=== PATIENT | female | born 1945 | race Caucasian/White ===

== ENCOUNTER → 2017-11-29 | Outpatient (CLI) | payer MEDICARE ==
[~2017-11-29] MED LIST: ACET-1862 PO; ADV250/50 INH; ASP81 PO; CALC-797 PO; CELE-1 PO; COM14R IH; COM14R INH; CYA100 PO; DIA10 PO; EST625 PO; FLUT1DIS27 IH; IPRA14.76 IH; TUM500 PO; TYLENOL #3 PO; VITE400 PO; [UNRECOGNIZED DRUG - CODE] PO
[2017-11-29 12:27] LABS: LDL CHOLESTEROL 69 mg/dl
== END ==
LOC: LAB 11:42
PROVIDERS: ATTEND Physician Assistant
DX: J44.9 Chronic obstructive pulmonary disease, unspecified (principal)
CPT/HCPCS: 36415; 82040; 82247; 82310; 82374; 82435; 82465; 82565; 82947; 83718; 84075; 84132; 84155; 84295; 84450; 84460; 84478; 84520; 85027